=== PATIENT | male | born 1975 | race Caucasian/White ===

== ENCOUNTER 2021-04-25 00:27 | Emergency (ER) | payer MEDICAID, SELFPAY ==
[2021-04-25 00:31] VITALS: BP 138/91
--- NOTE | 2021-04-25 00:35 | NUR ---
pt presents to the ed with glass in his foot. pt in gown, resting on gurney
--- NOTE | 2021-04-25 02:00 | NUR ---
updated pt that he was waiting on xray results. pt resting on gurney, denies needs at this time.
--- NOTE | 2021-04-25 03:57 | NUR ---
Patient given discharge instructions and they have confirmed that they understand the instructions. Patient ambulatory with steady gait.
== END 2021-04-25 04:00 | disposition home or self-care (01) ==
LOC: ED 00:48
DX: S90.851A Superficial foreign body, right foot, initial encounter (principal); X58.XXXA Exposure to other specified factors, initial encounter; Y93.89 Activity, other specified; Y92.89 Other specified places as the place of occurrence of the external cause; Y99.8 Other external cause status
CPT/HCPCS: 99283